=== PATIENT | female | born 1975 | race Caucasian/White ===

== ENCOUNTER 2019-12-03 09:38 | Emergency (ER) | payer OTHER ==
[~2019-12-03] VITALS: Ht 157.5 cm; Wt 72.6 kg
[~2019-12-03 09:38] MED LIST: CLEOCIN HCL300 MG PO; COLACE100 MG PO; IBUPROFEN 800800 M1 PO; LANSINOH 60 GM60 GM TOP; LORTAB 5 MG/5001 TAB PO; PERCOCET 5-3251 EACH PO; PERIDEX 0.12%473 M1 SSP; PRENATAL PO; SIMETHICON CHEW80 M1 PO; TL-FOL 500 CAP1 EACH PO; [UNRECOGNIZED DRUG - OTHER]
[2019-12-03 09:45] VITALS: BP 148/98
[2019-12-03] MEDS ORDERED: CLEOCIN HCL300 MG PO (10:04)
[2019-12-03] MEDS ORDERED: NORCO 5-325 TA1 EAC2 PO (10:04)
== END 2019-12-03 10:15 | disposition home or self-care (01) ==
LOC: M.ERS 09:38
DX: K04.7 Periapical abscess without sinus (principal); K02.9 Dental caries, unspecified; Z88.0 Allergy status to penicillin; Z88.5 Allergy status to narcotic agent